=== PATIENT | female | born 1960 | race Two or more races ===

== ENCOUNTER 2021-01-30 10:50 | Outpatient (CLI) | payer OTHER | END 2021-01-30 10:55 | disposition home or self-care (01) | LOC: RAD 10:50 | DX: M54.2 Cervicalgia (principal); N60.11 Diffuse cystic mastopathy of right breast; N60.12 Diffuse cystic mastopathy of left breast; E03.8 Other specified hypothyroidism; R10.9 Unspecified abdominal pain ==

== ENCOUNTER → 2021-01-30 11:45 | Outpatient (CLI) | payer OTHER | END | disposition home or self-care (01) | LOC: LAB 11:45 | PROVIDERS: ATTEND Obstetrics & Gynecology | DX: N95.1 Menopausal and female climacteric states (principal); R89.1 Abnormal level of hormones in specimens from other organs, systems and tissues; E03.8 Other specified hypothyroidism; D64.89 Other specified anemias; E55.9 Vitamin D deficiency, unspecified; M81.6 Localized osteoporosis [Lequesne]; N39.0 Urinary tract infection, site not specified; C50.011 Malignant neoplasm of nipple and areola, right female breast; C56.1 Malignant neoplasm of right ovary; C56.2 Malignant neoplasm of left ovary; D68.8 Other specified coagulation defects; N72 Inflammatory disease of cervix uteri; R10.0 Acute abdomen; I10 Essential (primary) hypertension; Z12.11 Encounter for screening for malignant neoplasm of colon; Z78.9 Other specified health status ==

== ENCOUNTER 2025-02-01 09:40 | Day surgery (SDC) | payer OTHER ==
[2025-01-31 13:29] VITALS: BP 143/80
[2025-01-31 13:39] LABS: HEMATOCRIT 37.3 % (36.0-45.00); HEMOGLOBIN 12.6 g/dL (12.0-15.00); MEAN CORPUSCULAR HEMOGLOBIN 29.3 pg (27.00-32.0); MEAN CORPUSCULAR HGB CONC 33.7 g/dl (32.0-36.0); PLATELET COUNT 209 K/uL (150-450); RED BLOOD COUNT 4.29 M/uL (4.00-6.00); RED CELL DISTRIBUTION WIDTH 13.9 % (11.5-14.5)
[2025-01-31 14:06] LABS: PARTIAL THROMBOPLASTIN TIME 28.8 SECONDS (22.0-34.0); PROTHROMBIN TIME 10.9 SECONDS (9.0-11.5)
[2025-01-31 14:14] LABS: ALBUMIN 4.1 gm/dL (3.4-5.0); BILIRUBIN TOTAL 0.38 mg/dL (0.3-1.2); CALCIUM 9.7 mg/dL (8.5-10.1); CREATININE SERUM 0.76 mg/dL (0.55-1.02); GFR 76.14; GLOBULINA 4.5 G/DL (2.4-3.5); POTASSIUM 4.5 mEq/L (3.5-5.1); TOTAL PROTEIN 8.6 gm/dL (6.4-8.2)
[~2025-02-01] VITALS: Ht 160 cm; Wt 61.2 kg
[2025-02-01] MEDS ORDERED: CEFAZOLIN SODIUM 1,000 MG VIAL IV ONE (13:45)
[2025-02-01] MEDS ORDERED: MEPERIDINE HCL 25 MG/ML AMPUL IV ONE (17:10)
[2025-02-01] MEDS ORDERED: KETOROLAC TROMETHAMINE 30 MG VIAL IV ONE (18:15)
[2025-02-01] MEDS ORDERED: PROMETHAZINE HCL 50 MG/ML AMPUL IM ONE (18:15)
[2025-02-01] MEDS ORDERED: POVIDONE-IODINE 118 ML BOTT TOP ONE (18:30)
[2025-02-01] MEDS ORDERED: CHLORHEXIDINE GLUCONATE 120 ML BOTTLE TOP ONE (18:30)
== END 2025-02-01 19:15 | disposition home or self-care (01) ==
LOC: CIR.AMB 09:40 → EDSTATUS 13:01 → CIR.AMB 19:15
PROVIDERS: ATTEND Student in an Organized Health Care Education/Training Program
DX: N84.0 Polyp of corpus uteri (principal); E78.5 Hyperlipidemia, unspecified; K21.9 Gastro-esophageal reflux disease without esophagitis